=== PATIENT | male | born 1980 | race Caucasian/White ===

== ENCOUNTER 2025-10-18 09:24 | Emergency (ER) | payer BC, SELFPAY ==
[2025-10-18 09:31] VITALS: BP 141/83
--- NOTE | 2025-10-18 11:39 | ED.GENMED ---
History of Present Illness
General
Chief Complaint: Musculo-Skeletal Complaint
Source: patient
Exam Limitations: none
Time Seen by Provider: 10/18/25 10:58
Nursing documentation reviewed up to this point in time: agreed with
History of Present Illness
History of Present Illness:
44-year-old male presents to the ER complaining of pain to his left neck for the past several days. Patient felt that he woke up from. Pain is gradually gotten worse worse with movement of his neck. Yesterday he felt some pain shooting down his
left posterior arm into his thumb. He has had neck issues in the past. He denies any recent trauma or chiropractic manipulation. Denies any associated nausea vomiting fever chills. Denies any arm weakness. He has been taking ibuprofen without
relief last this morning.
Past History
Past History
ED Past Medical History: None
Social History
Personal:
Living: with family
Employment: Employed
Phy Exam
General Physical Exam
General Presentation: no apparent distress
General age: appears stated age
General Skin: warm and dry
General Habitus: normal
General Mental: alert
General Hydration: appears well hydrated
Neurological Exam
Neurological Exam: alert, oriented x3, no motor deficits, no sensory deficits and other (Intact sensation to upper bilateral extremities )
Musculoskeletal Exam
Musculoskeletal Exam: other (tender to left lateral paraspinal muscle )
Skin Exam
Skin Exam: normal color and warm/dry
Psychiatric Exam
Psychiatric Exam: normal mood/affect
Course
Orders/Labs/Results
Orders:
Orders
10/18/25 11:37
Dexamethasone Pf [Decadron] 10 mg PO NOW STA
diazePAM [Valium Injection] 5 mg IM NOW STA
10/18/25 11:38
CT Cervical Spine W/o Iv Contr Urgent
Comment:
Reason For Exam: left neck pain radiating down left arm
10/18/25 11:41
Lidocaine [Lidocaine 4% Patch] 1 patch .ROUTE .[facility] [facility] [facility]
10/19/25 08:00
Lidocaine [Lidocaine 4% Patch] 1 patch TOPICAL DAILY
Apply Lidocaine patch(s) to:: left neck
Vital Signs
Initial and Last Documented VS:
Initial Vital Signs
Temp Pulse Resp BP Pulse Ox
97.3 F 73 18 141/83 100
10/18/25 09:31 10/18/25 09:31 10/18/25 09:31 10/18/25 09:31 10/18/25 09:31
Last Documented Vital Signs
Temp Pulse Resp BP Pulse Ox
97.3 F 73 18 119/78 100
10/18/25 09:31 10/18/25 09:31 10/18/25 09:31 10/18/25 13:00 10/18/25 12:17
MDM/Problems Addressed
MDM/Problems Addressed:
Symptoms are likely torticollis patient has had some radiation to his left arm however no deficits. No trauma was given a dose of steroids along with Valium. Will likely need a prescription for Valium however will DC with NSAIDs [id number]
until seen and eval by PCP. Will likely need physical therapy. No fevers or evidence of infection no meningismus.
CT does show degenerative issues I did review this with patient will refer to Ortho. Patient has had some improvement will DC with Valium ibuprofen and outpatient follow-up
*Radiology
Radiology exam reviewed: radiology read reviewed
*Pulse Oximetry
SaO2: 100
Oxygen Mode of Delivery: Room air
Patient hypoxic: no
*Critical Care Note
Total Time (30-74mins, 75-104mins- exclusive of procedures): Not Applicable
ED Attending Note
-
Portions of this chart may have been created with voice recognition software.� Occasional wrong word or��sound alike� substitutions may have occurred due to the inherent limitations of voice recognition software.
Discharge Plan
Departure
Patient Disposition: Home (Routine Discharge)
Date of Disposition: 10/18/25
Time of Disposition: 13:22
Patient with high blood pressure during this ER visit?: Yes
Consults for patient: Case Management
Condition: Fair
Covid-19: Not Applicable
Discharge Problem:
Acute torticollis, Radicular pain in left arm
Instructions: Torticollis (DC), BLOOD PRESSURE
Prescriptions:
New
diazepam [Valium] 5 mg tablet
5 mg PO TID PRN (Reason: muscle spasm) Qty: 10 0RF
Referrals:
Omra Marie PA-C [Family Provider, Family Practice]
Jamey Killian MD [Active, Orthopedics]
Stand Alone Forms: Return to Work
Activity Restrictions/Additional Instructions:
As discussed ibuprofen 600 mg every 8 hours with food. You may take Valium 5 mg every 8 hours as needed. No driving or drinking alcohol while taking this medication. This will cause drowsiness. Warm moist heat to affected area several times a
day. Follow-up with your family doctor the next several days for reevaluation as well as orthopedics for additional findings on CAT scan. Return if any worsening of symptoms.
Interventions
Interventions:
*Risk Screen - Suicide Last Done: 10/18/25 09:31
*General Assessment Last Done: 10/18/25 11:48
*Neglect/Abuse Screening Last Done: 10/18/25 11:48
*ED- Fall Risk Assessment Last Done: 10/18/25 11:48
*ED COVID-19 Vaccine History Last Done: 10/18/25 11:48
*ED Influenza Vaccine History Last Done: 10/18/25 11:48
ED-Musculoskeletal Assessment Last Done: 10/18/25 11:51
Discharge Date and Time
Print Language: GHANAIAN
[2025-10-18] MEDS: DECADRON 10 MG PO (11:43)
[2025-10-18] MEDS: VALIUM INJECTION 5 MG IM (11:43)
[2025-10-18] MEDS: LIDOCAINE 4% PATCH 1 PATCH TOPICAL (11:44)
[2025-10-18 11:50] VITALS: BP 132/86
[2025-10-18 12:00] VITALS: BP 122/85
[2025-10-18 12:33] VITALS: BP 131/80
[2025-10-18 13:00] VITALS: BP 119/78
== END 2025-10-18 13:32 | disposition home or self-care (01) ==
LOC: EMR 09:24
PROVIDERS: EMERGENCY PHYSICIAN Emergency Medicine; FAMILY PHYSICIAN Physician Assistant Medical
DX: M43.6 Torticollis (principal); M54.10 Radiculopathy, site unspecified; M47.812 Spondylosis without myelopathy or radiculopathy, cervical region; R03.0 Elevated blood-pressure reading, without diagnosis of hypertension
CPT/HCPCS: 99284; 96372; 72125